=== PATIENT | male | born 1960 | race African-American/Black ===

== ENCOUNTER 2020-10-16 17:54 | Emergency (ER) | payer MEDICAID ==
[~2020-10-16] VITALS: Ht 182.9 cm; Wt 68.0 kg
[2020-10-16] MEDS ORDERED: IBUPROFEN 600MG TABLET PO STA (18:31)
[2020-10-16 19:24] VITALS: BP 130/78
== END 2020-10-16 19:24 | disposition home or self-care (01) ==
LOC: ER 17:54
DX: R43.9 Unspecified disturbances of smell and taste (principal); R05 Cough; Z20.822 Contact with and (suspected) exposure to COVID-19; R03.0 Elevated blood-pressure reading, without diagnosis of hypertension; J44.9 Chronic obstructive pulmonary disease, unspecified
CPT/HCPCS: 71045; 93005; 99285; C9803; U0003; U0005

== ENCOUNTER 2022-07-16 09:57 | Emergency (ER) | payer MEDICAID ==
[~2022-07-16] VITALS: Ht 182.9 cm; Wt 75.0 kg
[2022-07-16 10:01] VITALS: BP 141/94
[2022-07-16] MEDS ORDERED: IBUP-2028 MT (12:16)
[2022-07-16] MEDS ORDERED: TOPUD PO (12:16)
== END 2022-07-16 12:40 | disposition home or self-care (01) ==
LOC: ER 09:57
DX: K40.90 Unilateral inguinal hernia, without obstruction or gangrene, not specified as recurrent (principal)
CPT/HCPCS: 74176; 99284

== ENCOUNTER 2023-03-19 14:07 | Emergency (ER) | payer MEDICAID ==
[~2023-03-19] VITALS: Ht 185.4 cm; Wt 77.1 kg
[~2023-03-19 14:07] MED LIST: IBUP-2028 MT; TOPUD PO
[2023-03-19 14:13] VITALS: O2SAT 100
[2023-03-19] MEDS ORDERED: SODIUM CHLORIDE 0.9% 1,000 ML IV ONE (15:00)
[2023-03-19 15:13] LABS: CLARITY URINE CLEAR (CLEAR); COLOR URINE YELLOW (YELLOW); GLUCOSE URINE NEGATIVE (NEGATIVE); KETONES URINE 1+ (NEGATIVE); LEUKOCYTE ESTERASE URINE NEGATIVE (NEGATIVE); NITRITE URINE NEGATIVE (NEGATIVE); OCCULT BLOOD URINE NEGATIVE (NEGATIVE); PROTEIN URINE 1+ (NEGATIVE); SPECIFIC GRAVITY URINE 1.022 (1.005-1.030); UROBILINOGEN URINE 0.2 E.U./dL (0.2-1.0)
[2023-03-19 15:16] LABS: BASOPHILS % 0.2 % (0.0-2.0); EOSINOPHILS % 0.1 % (0.0-5.0); HEMATOCRIT. 45.2 % (42.0-52.0); HEMOGLOBIN. 14.9 g/dL (14.0-18.0); LYMPHOCYTES % 12.4 % (20.0-50.0); MEAN CORPUSCULAR HEMOGLOBIN 31.6 pg (28.0-32.0); MEAN CORPUSCULAR VOLUME 95.6 fL (80.0-94.0); MEAN PLATELET VOLUME 9.5 fl (7.4-10.4); MONOCYTES % 6.2 % (2.0-8.0); NEUTROPHILS % 81.1 % (40.0-76.0); PLATELET 186 x1000/uL (130-400); RED BLOOD CELL COUNT 4.73 mill/uL (4.7-6.1); WHITE BLOOD COUNT 8.6 x1000/uL (4.5-11.0)
[2023-03-19 15:20] LABS: D-DIMER 0.19 mg/L FEU (<0.50); PARTIAL THROMBOPLASTIN TIME 27.3 sec (23.4-31.0); PROTHROMBIN TIME 10.6 sec (9.6-11.0)
[2023-03-19 15:25] LABS: SQUAMOUS EPITHELIAL CELL URINE NONE SEEN /lpf (RARE/1+)
[2023-03-19 15:26] LABS: BACTERIA URINE NONE SEEN; RBC URINE NONE SEEN /hpf (0-2); WBC URINE 0-2 /hpf (0-2)
[2023-03-19 15:31] LABS: CHLORIDE 107 mEq/L (98-107); INDEX HEMOLYSI 1 (1-3); INDEX ICTERIC 1 (1-4); INDEX LIPEMIC 1 (1-3); POTASSIUM 3.6 mEq/L (3.5-5.1); SODIUM 140 mEq/L (136-145)
[2023-03-19 15:46] LABS: ALANINE AMINOTRANSFERASE 31 IU/L (13-61); ASPARTATE AMINOTRANSFERASE 41 IU/L (15-37); BILIRUBIN TOTAL 1.2 mg/dL (0.1-1.0); CALCIUM 9.2 mg/dL (8.5-10.1); CARBON DIOXIDE 21 mEq/L (21-32); CREATININE 1.1 mg/dL (0.6-1.3); ETHANOL BLOOD 31 mg/dL (<10); GLUCOSE 67 mg/dL (70-105); NT PRO B-TYPE NATRIURETIC PEP 43 pg/mL (5-125); PROTEIN TOTAL 8.4 g/dL (6.0-8.3); THYROID STIMULATING HORMONE 0.42 uIU/mL (0.36-3.74); TROPONIN I HIGH SENSITIVITY 5 ng/L (<78); UREA NITROGEN BLOOD 19 mg/dL (7-21)
[2023-03-19 16:50] VITALS: BP 132/85; PULSE 93; RESP 20; TEMP 98
== END 2023-03-19 16:52 | disposition home or self-care (01) ==
LOC: ER 14:07
DX: R00.2 Palpitations (principal); F10.10 Alcohol abuse, uncomplicated
CPT/HCPCS: 80053; 81003; 80320; 83880; 84443; 85025; 85379; 85610; 85730; 84484; 36415; 71045; 93005; 96360; 99285; Z7610 ×3; G0480